=== PATIENT | female | born 1965 | race Caucasian/White ===

== ENCOUNTER 2018-10-16 10:10 | Inpatient (IN) ==
[2018-10-16] MEDS ORDERED: ACETAMINOPHEN 325 MG TABLET PO PRN (10:16)
[2018-10-16] MEDS ORDERED: PROMETHAZINE 25 MG/1 ML VIAL IM PRN (10:16)
[2018-10-16] MEDS ORDERED: ONDANSETRON 4 MG/2 ML VIAL IV PRN (10:16)
[2018-10-16] MEDS ORDERED: DEXTROSE 50% 25 GM/50 ML VIAL IV PRN (10:22)
[2018-10-16] MEDS ORDERED: GLUCAGON 1 MG VIAL IM PRN ×2 (10:22→15:07)
[2018-10-16] MEDS: cefTRIAXone 1,000 MG in SYRINGE 1 EACH IV SCH (12:55)
[2018-10-16] MEDS: INSULIN REGULAR 100 UNIT/ML SUBCUT SCH ×3 (12:56→21:44)
[2018-10-16 13:45] LABS: Basophils # 0.1 10*3/uL (0.0-0.2); Basophils % 1.2 % (0.0-0.8); Eosinophils # 0.1 10*3/uL (0.0-0.87); Eosinophils % 1.6 % (0.00-10.9); Hematocrit 35.7 VOL% (35.7-47.0); Hemoglobin 12.6 GM/DL (12.0-16.0); Immature Granulocytes % 0.2 %; Immature Granulocytes Absolute 0.01 #; Lymphocytes # 1.7 10*3/uL (1.4-4.0); Lymphocytes % 34.2 % (21.3-54.2); Mean Corpuscular HGB Conc 35.3 GM/DL (32-36); Mean Corpuscular Volume 86.9 FL (87-102); Mean Platelet Volume 9.9 FL (9.6-12.0); Monocytes % 6.5 % (1.7-12.7); Neutrophils % 56.3 % (38.7-73.9); Platelet Count 233 T/CUMM (130-400); Red Blood Count 4.11 MC/CUMM (3.8-5.5); Red Cell Distribution Width 11.7 % (9.3-17.3); White Blood Count 5.1 T/CUMM (4-12)
[2018-10-16 14:02] LABS: Calcium 8.6 MG/DL (8.5-10.1); Osmolality,Calculated 278.1 MOS/KG (273-304)
[2018-10-16] MEDS ORDERED: DEXTROSE 10% 25 GM/250 ML BAG IV PRN (15:07)
[2018-10-16] MEDS ORDERED: POTASSIUM CHLORIDE 20 MEQ TABLET PO ONE (15:52)
[2018-10-16] MEDS: GABAPENTIN 600 MG TABLET PO SCH ×2 (16:19→21:42)
[2018-10-16] MEDS: MAGNESIUM CHLORIDE 64 MG TABLET PO SCH (16:22)
[2018-10-16] MEDS: SODIUM CHLORIDE 0.9% 1,000 ML IV SCH ×2 (16:26→23:01)
[2018-10-16] MEDS ORDERED: INSULIN GLARGINE 100 UNIT/ML SUBCUT SCH (21:00)
[2018-10-16] MEDS ORDERED: INSULIN GLARGINE 50 UNIT SQ SCH (21:00)
[2018-10-16] MEDS: POLYETHYLENE GLYCOL POWDER 17 GM PACK PO SCH (21:41)
[2018-10-16] MEDS: DOCUSATE SODIUM 100 MG CAPSULE PO SCH (21:41)
[2018-10-17] MEDS: HYDROmorphone 2 MG/1 ML VIAL IV PRN ×2 (00:35→20:09)
[2018-10-17 05:08] LABS: Basophils # 0.1 10*3/uL (0.0-0.2); Basophils % 1.2 % (0.0-0.8); Eosinophils # 0.2 10*3/uL (0.0-0.87); Eosinophils % 3.3 % (0.00-10.9); Hematocrit 35.6 VOL% (35.7-47.0); Hemoglobin 12.2 GM/DL (12.0-16.0); Immature Granulocytes % 0.5 %; Immature Granulocytes Absolute 0.03 #; Lymphocytes # 2.6 10*3/uL (1.4-4.0); Lymphocytes % 44.7 % (21.3-54.2); Mean Corpuscular HGB Conc 34.3 GM/DL (32-36); Mean Corpuscular Volume 88.6 FL (87-102); Mean Platelet Volume 9.9 FL (9.6-12.0); Neutrophils % 42.3 % (38.7-73.9); Platelet Count 240 T/CUMM (130-400); Red Blood Count 4.02 MC/CUMM (3.8-5.5); Red Cell Distribution Width 11.8 % (9.3-17.3); White Blood Count 5.8 T/CUMM (4-12)
[2018-10-17 05:42] LABS: Calcium 8.7 MG/DL (8.5-10.1); Osmolality,Calculated 279.4 MOS/KG (273-304)
[2018-10-17] MEDS: SODIUM CHLORIDE 0.9% 1,000 ML IV SCH ×3 (07:02→22:28)
[2018-10-17] MEDS: INSULIN REGULAR 100 UNIT/ML SUBCUT SCH ×4 (09:51→20:31)
[2018-10-17] MEDS: ATORVASTATIN 10 MG TABLET PO SCH (09:52)
[2018-10-17] MEDS: DOCUSATE SODIUM 100 MG CAPSULE PO SCH ×2 (09:52→20:29)
[2018-10-17] MEDS: GABAPENTIN 600 MG TABLET PO SCH ×3 (09:52→20:29)
[2018-10-17] MEDS: PANTOPRAZOLE 40 MG TABLET PO SCH (09:52)
[2018-10-17] MEDS: POLYETHYLENE GLYCOL POWDER 17 GM PACK PO SCH ×2 (09:52→20:29)
[2018-10-17] MEDS: GLIMEPIRIDE 4 MG TABLET PO SCH (09:52)
[2018-10-17] MEDS: MAGNESIUM CHLORIDE 64 MG TABLET PO SCH (09:52)
[2018-10-17] MEDS: FLUTICASONE 50 MCG NASAL SPRAY 16 GM BOTTLE BOTH NARES SCH (09:54)
[2018-10-17] MEDS: cefTRIAXone 1,000 MG in SYRINGE 1 EACH IV SCH (12:06)
[2018-10-17] MEDS: INSULIN NPH 100 UNIT/ML SUBCUT SCH (16:18)
[2018-10-17] MEDS ORDERED: BENZOCAINE 20% ORAL GEL 11.9 GM TUBE TOP PRN (17:45)
[2018-10-18 00:25] LABS: Apearance,Urine CLEAR (Clear); Bilirubin,Urine Negative (Negative); Blood, Urine Small mg/dL (Negative); Glucose,Urine (UA) 50 mg/dL (Negative); Ketones,Urine Negative (Negative); Mucus,Urine Occasional /LPF (Occasional); Nitrite,Urine Negative (Negative); Protein,Urine Negative; RBC,Urine 1 /HPF (0-4); Squamous Epithelial Cell,Urine Occasional /HPF (0-10); Urine Color Colorless (Yellow); Urine Specific Gravity 1.004 (1.001-1.035); Urine Urobilinogen < 2.0 EU/DL (0.2-1.0); WBC,Urine 1 /HPF (0-6)
[2018-10-18] MEDS: SODIUM CHLORIDE 0.9% 1,000 ML IV SCH ×2 (02:59→07:01)
[2018-10-18] MEDS: HYDROmorphone 2 MG/1 ML VIAL IV PRN ×3 (05:11→11:07)
[2018-10-18] MEDS: INSULIN NPH 100 UNIT/ML SUBCUT SCH (08:09)
[2018-10-18] MEDS: INSULIN REGULAR 100 UNIT/ML SUBCUT SCH ×2 (08:09→13:33)
[2018-10-18] MEDS: FLUTICASONE 50 MCG NASAL SPRAY 16 GM BOTTLE BOTH NARES SCH (08:11)
[2018-10-18] MEDS: DOCUSATE SODIUM 100 MG CAPSULE PO SCH (08:11)
[2018-10-18] MEDS: GLIMEPIRIDE 4 MG TABLET PO SCH (08:11)
[2018-10-18] MEDS: GABAPENTIN 600 MG TABLET PO SCH (08:12)
[2018-10-18] MEDS: PANTOPRAZOLE 40 MG TABLET PO SCH (08:12)
[2018-10-18] MEDS: POLYETHYLENE GLYCOL POWDER 17 GM PACK PO SCH (08:12)
[2018-10-18] MEDS: ATORVASTATIN 10 MG TABLET PO SCH (08:12)
[2018-10-18] MEDS: MAGNESIUM CHLORIDE 64 MG TABLET PO SCH (08:12)
[2018-10-18] MEDS ORDERED: cefTRIAXone 1,000 MG VIAL ONE (10:25)
[2018-10-18] MEDS ORDERED: ONDANSETRON 4 MG/2 ML VIAL ONE ×2 (10:58→12:16)
[2018-10-18] MEDS ORDERED: GLUCAGON 1 MG VIAL IM PRN (12:07)
[2018-10-18] MEDS ORDERED: DEXTROSE 50% 25 GM/50 ML VIAL IV PRN (12:07)
[2018-10-18] MEDS ORDERED: MIDAZOLAM 2 MG/2 ML VIAL ONE (12:15)
[2018-10-18] MEDS ORDERED: PROPOFOL 200 MG/20 ML VIAL IV ONE (12:15)
[2018-10-18] MEDS ORDERED: SEVOFLURANE 1 UNIT/15 MINUTE INH ONE (12:15)
[2018-10-18] MEDS ORDERED: fentaNYL 100 MCG/2 ML VIAL ONE (12:16)
[2018-10-18] MEDS: cefTRIAXone 1,000 MG in SYRINGE 1 EACH IV SCH (13:33)
[2018-10-18 16:11] VITALS: BP 143/85
== END 2018-10-18 16:39 | disposition home or self-care (01) | DRG 74 ==
LOC: N.5E → OBSVTOIN 10:30
PROVIDERS: ADMIT Surgery; ATTEND Surgery